=== PATIENT | female | born 1965 | race Two or more races ===

== ENCOUNTER 2022-06-28 15:02 | Emergency (ER) | payer OTHER ==
[~2022-06-28] VITALS: Ht 160 cm; Wt 81.6 kg
[2022-06-28] MEDS ORDERED: ACETAMINOPHEN 325 MG TABLET PO ONE (15:15)
--- NOTE | 2022-06-28 15:16 | NUR ---
DR BARCENAS AT BEDSIDE FOR EVALUATION.
[2022-06-28] MEDS ORDERED: ACETAMINOPHEN 325 MG TABLET ONE (15:26)
[2022-06-28] MEDS ORDERED: IBUP-1955 PO (15:34)
--- NOTE | 2022-06-28 16:36 | NUR ---
Patient discharged to home in stable condition. Written and verbal after care instructions given to patient. Patient verbalized understanding and compliance of instructions. Stressed follow up with primary doctor and hand specialist or return to ER for worsening s/s.
== END 2022-06-28 16:38 | disposition home or self-care (01) ==
LOC: ER 15:06
DX: S60.041A Contusion of right ring finger without damage to nail, initial encounter (principal); W31.89XA Contact with other specified machinery, initial encounter; Y93.G9 Activity, other involving cooking and grilling; Y92.89 Other specified places as the place of occurrence of the external cause; I10 Essential (primary) hypertension; R73.03 Prediabetes
CPT/HCPCS: 73130; A4663

== ENCOUNTER 2023-06-20 11:03 | Emergency (ER) | payer OTHER ==
[~2023-06-20] VITALS: Ht 162.6 cm; Wt 74.8 kg
[~2023-06-20 11:03] MED LIST: IBUP-1955 PO
[2023-06-20] MEDS ORDERED: NAPR-1192 PO (11:39)
[2023-06-20] MEDS ORDERED: SILV50CR32 TP (11:39)
[2023-06-20] MEDS ORDERED: NAPROXEN 500 MG TABLET ONE (11:40)
[2023-06-20] MEDS ORDERED: SILVER SULFADIAZINE 1% CREAM 50 GM TP ONE ×2 (11:40→11:45)
[2023-06-20] MEDS ORDERED: TDAP DIPH,PERTUSS,TET VAC/PF 0.5 ML DISP.SYRIN IM ONE ×2 (11:40→11:45)
[2023-06-20] MEDS ORDERED: NAPROXEN 500 MG TABLET PO ONE (11:45)
[2023-06-20 11:53] VITALS: BP 132/70; TEMP 98; O2SAT 99
== END 2023-06-20 11:54 | disposition home or self-care (01) ==
LOC: ER 11:07
DX: T22.20XA Burn of second degree of shoulder and upper limb, except wrist and hand, unspecified site, initial encounter (principal); I10 Essential (primary) hypertension; Z79.1 Long term (current) use of non-steroidal anti-inflammatories (NSAID); Z79.899 Other long term (current) drug therapy; X08.8XXA Exposure to other specified smoke, fire and flames, initial encounter; Y93.89 Activity, other specified; Y92.89 Other specified places as the place of occurrence of the external cause; Y99.8 Other external cause status
CPT/HCPCS: 16020; 90715; A4663

== ENCOUNTER 2024-03-06 09:13 | Emergency (ER) | payer OTHER ==
[~2024-03-06] VITALS: Ht 165.1 cm; Wt 81.6 kg
[~2024-03-06 09:13] MED LIST changes: +NAPR-1192 PO; +SILV50CR32 TP
[2024-03-06 09:16] VITALS: O2SAT 99
[2024-03-06] MEDS ORDERED: MECLIZINE HCL 25 MG TABLET ONE (10:25)
[2024-03-06] MEDS: MECLIZINE HCL 25 MG TABLET PO ONE (10:26)
[2024-03-06 11:14] LABS: BASOPHILS # (AUTO) 0.1 K/UL (0.0-0.2); BASOPHILS % (AUTO) 0.8 % (0.0-2.0); CALCIUM 8.1 mg/dL (8.5-10.1); CREATININE 0.6 mg/dL (0.6-1.3); EOSINOPHILS # (AUTO) 0.4 K/uL (0.0-0.7); EOSINOPHILS % (AUTO) 5.3 % (0.0-7.0); HEMATOCRIT 41.7 % (31.2-41.9); HEMOGLOBIN 14.3 g/dL (10.9-14.3); LYMPHOCYTES # (AUTO) 1.7 K/uL (0.8-4.8); LYMPHOCYTES % (AUTO) 22.8 % (20.5-51.5); MEAN CORPUSCULAR HEMOGLOBIN 27.5 uug (24.7-32.8); MEAN CORPUSCULAR HGB CONC 34 g/dL (32.3-35.6); MEAN CORPUSCULAR VOLUME 80.3 fL (75.5-95.3); MONOCYTES # (AUTO) 0.6 K/uL (0.1-1.30); MONOCYTES % (AUTO) 8.4 % (0.0-11.0); NEUTROPHILS # (AUTO) 4.6 K/uL (1.8-8.9); NEUTROPHILS % (AUTO) 62.7 % (38.5-71.5); PLATELET COUNT (AUTO) 204 K/uL (179-408); POTASSIUM 3.6 mmol/L (3.5-5.1); RED BLOOD CELL COUNT(AUTO) 5.19 MIL/uL (3.63-4.92); RED CELL DISTRIBUTION WIDTH 14.4 % (12.3-17.7); WHITE BLOOD COUNT (AUTO) 7.3 K/uL (3.8-11.8)
[2024-03-06 11:15] LABS: DIFFERENTIAL COMMENT 1
[2024-03-06 11:20] LABS: ALBUMIN 3.5 g/dL (3.4-5.0); BILIRUBIN,DIRECT 0.1 mg/dL (0.0-0.2); BILIRUBIN,TOTAL 0.5 mg/dL (0.2-1.0); MAGNESIUM 2.1 mg/dL (1.8-2.4); TOTAL PROTEIN, SERUM 7.5 g/dL (6.4-8.2)
[2024-03-06] MEDS ORDERED: MECL-159 PO (11:41)
== END 2024-03-06 11:52 | disposition home or self-care (01) ==
LOC: ER 09:14
DX: H81.23 Vestibular neuronitis, bilateral (principal); H00.021 Hordeolum internum right upper eyelid; H60.93 Unspecified otitis externa, bilateral; I10 Essential (primary) hypertension; Z79.899 Other long term (current) drug therapy
CPT/HCPCS: 36415; 83735; 85025; 93005; A4606; A4663; J8597

== ENCOUNTER 2024-07-12 09:28 | Emergency (ER) | payer OTHER ==
[~2024-07-12] VITALS: Ht 162.6 cm; Wt 81.6 kg
[~2024-07-12 09:28] MED LIST changes: +MECL-159 PO
[2024-07-12] MEDS ORDERED: LIDOCAINE 5% PATCH TD ONE (10:14)
[2024-07-12] MEDS ORDERED: ACETAMINOPHEN 325 MG TABLET ONE (10:15)
[2024-07-12] MEDS ORDERED: KETOROLAC TROMETHAMINE 15 MG INJ ONE (10:15)
[2024-07-12] MEDS ORDERED: CYCLOBENZAPRINE HCL 10 MG TABLET ONE (10:15)
[2024-07-12] MEDS ORDERED: ACETAMINOPHEN 500 MG TABLET ONE (10:20)
[2024-07-12] MEDS: ACETAMINOPHEN 500 MG TABLET PO ONE (10:20)
[2024-07-12] MEDS: CYCLOBENZAPRINE HCL 10 MG TABLET PO ONE (10:20)
[2024-07-12] MEDS: LIDOCAINE 5% PATCH TD ONE (10:20)
[2024-07-12] MEDS: KETOROLAC TROMETHAMINE 15 MG INJ IM ONE (10:20)
[2024-07-12] MEDS ORDERED: HYDR-4209 PO (10:23)
[2024-07-12] MEDS ORDERED: CYCL5TAB PO (10:23)
[2024-07-12] MEDS ORDERED: IBUP-1955 PO (10:23)
[2024-07-12] MEDS ORDERED: LIDO30AD10 TP (10:23)
[2024-07-12 10:45] VITALS: BP 162/73; TEMP 97.7; O2SAT 98
== END 2024-07-12 10:57 | disposition home or self-care (01) ==
LOC: ER 09:28
DX: M54.50 Low back pain, unspecified (principal); I10 Essential (primary) hypertension; Z79.1 Long term (current) use of non-steroidal anti-inflammatories (NSAID); Z79.899 Other long term (current) drug therapy; Z91.013 Allergy to seafood
CPT/HCPCS: 99284; 96372; J1885; A4606; A4663; A9150

== ENCOUNTER 2024-09-30 11:01 | Emergency (ER) | payer OTHER ==
[~2024-09-30] VITALS: Ht 165.1 cm; Wt 81.6 kg
[~2024-09-30 11:01] MED LIST changes: +CYCL5TAB PO; +HYDR-4209 PO; +LIDO30AD10 TP
[2024-09-30 12:09] LABS: *BILIRUBIN,URIN NEGATIVE (NEGATIVE); *BLOOD, URINE 3+ (NEGATIVE); *CLARITY,URINE CLEAR (CLEAR); *COLOR,URINE YELLOW (YELLOW); *KETONES,URINE TRACE (NEGATIVE); *PROTEIN,URINE 1+ (NEGATIVE); *UROBILINOGEN,URINE 0.2 E.U./dl (NORMAL); LEUKOCYTE ESTERASE ,URINE 1+ (NEGATIVE); NITRITE, URINE NEGATIVE (NEGATIVE); UGLUCOSE NEGATIVE (NEGATIVE)
[2024-09-30 12:20] LABS: BACTERIA,URINE MODERATE /HPF (NONE SEEN); RBC,URINE 80-100 /HPF (0-3); SQUAMOUS EPITHELIAL CELL,UR FEW /HPF (NONE SEEN); WBC,URINE 50-80 /HPF (0-3)
[2024-09-30] MEDS ORDERED: CEFTRIAXONE /D5W 50ML IVPB **ER PYXIS IV ONE (14:05)
[2024-09-30] MEDS: CEFTRIAXONE 1 G in IV DEXTROSE 5% 50 ML IV ONE (14:06)
[2024-09-30 14:45] VITALS: O2SAT 99
[2024-09-30] MEDS ORDERED: CEFD300C3 PO (14:57)
[2024-09-30] MEDS ORDERED: ACET1TAB23 PO (14:57)
[2024-09-30] MEDS ORDERED: OFLO5DRO5 LEFT EAR (14:57)
== END 2024-09-30 15:04 | disposition home or self-care (01) ==
LOC: ER 11:01
DX: N39.0 Urinary tract infection, site not specified (principal); H60.92 Unspecified otitis externa, left ear; E11.9 Type 2 diabetes mellitus without complications; Z79.899 Other long term (current) drug therapy; Z88.7 Allergy status to serum and vaccine
CPT/HCPCS: 99284; 96365; 81001; 87086; J0696; A4606; A4663

== ENCOUNTER 2025-02-25 08:41 | Emergency (ER) | payer OTHER ==
[~2025-02-25] VITALS: Ht 162.6 cm; Wt 81.6 kg
[~2025-02-25 08:41] MED LIST changes: +ACET1TAB23 PO; +CEFD300C3 PO; +OFLO5DRO5 LEFT EAR
[2025-02-25 09:13] LABS: *BILIRUBIN,URIN 2+ (NEGATIVE); *BLOOD, URINE 3+ (NEGATIVE); *CLARITY,URINE TURBID (CLEAR); *COLOR,URINE RED (YELLOW); *KETONES,URINE 1+ (NEGATIVE); *PROTEIN,URINE 3+ (NEGATIVE); LEUKOCYTE ESTERASE ,URINE 3+ (NEGATIVE); NITRITE, URINE NEGATIVE (NEGATIVE); PH,URINE 8.5 (5.0-8.0); UGLUCOSE NEGATIVE (NEGATIVE)
[2025-02-25] MEDS ORDERED: SULF1TAB48 PO (09:38)
[2025-02-25 09:39] LABS: BACTERIA,URINE MODERATE /HPF (NONE SEEN); RBC,URINE TNTC /HPF (0-3); SQUAMOUS EPITHELIAL CELL,UR MODERATE /HPF (NONE SEEN); WBC,URINE 80-100 /HPF (0-3)
[2025-02-25] MEDS ORDERED: SULFAMETH/TRIMETH 800/160 MG TABLET ONE (09:41)
[2025-02-25] MEDS: SULFAMETH/TRIMETH 800/160 MG TABLET PO ONE (09:45)
[2025-02-25 09:47] VITALS: BP 165/91; TEMP 98.2; O2SAT 96
== END 2025-02-25 09:48 | disposition home or self-care (01) ==
LOC: ER 08:43
DX: N39.0 Urinary tract infection, site not specified (principal); E11.9 Type 2 diabetes mellitus without complications; Z88.7 Allergy status to serum and vaccine; Z86.69 Personal history of other diseases of the nervous system and sense organs; Z86.79 Personal history of other diseases of the circulatory system; Z87.448 Personal history of other diseases of urinary system; Z87.39 Personal history of other diseases of the musculoskeletal system and connective tissue; Z91.014 Allergy to mammalian meats; Z91.013 Allergy to seafood
CPT/HCPCS: 87077; 87086; A4606; A4663

== ENCOUNTER 2025-02-27 17:40 | Emergency (ER) | payer OTHER ==
[~2025-02-27] VITALS: Ht 154.9 cm; Wt 80.7 kg
[~2025-02-27 17:40] MED LIST changes: +SULF1TAB48 PO
[2025-02-27] MEDS ORDERED: CEFTRIAXONE /D5W 50ML IVPB **ER PYXIS IV ONE (18:06)
[2025-02-27] MEDS: CEFTRIAXONE 2 G in IV DEXTROSE 5% 100 ML IV ONE (18:09)
[2025-02-27] MEDS ORDERED: CEFD300C3 PO (18:11)
[2025-02-27 19:12] VITALS: BP 143/91; TEMP 98.1; O2SAT 98
== END 2025-02-27 19:12 | disposition home or self-care (01) ==
LOC: ER 17:52
DX: N39.0 Urinary tract infection, site not specified (principal); E11.9 Type 2 diabetes mellitus without complications; Z88.7 Allergy status to serum and vaccine; Z98.51 Tubal ligation status; Z86.69 Personal history of other diseases of the nervous system and sense organs; Z87.39 Personal history of other diseases of the musculoskeletal system and connective tissue; Z86.79 Personal history of other diseases of the circulatory system; Z91.014 Allergy to mammalian meats; Z91.013 Allergy to seafood
CPT/HCPCS: 99284; J0696 ×2; A4606; A4663